=== PATIENT | female | born 1990 | race Caucasian/White ===

== ENCOUNTER 2019-03-26 20:58 | Inpatient (IN) | payer MEDICAID, SELFPAY ==
[2019-03-26 19:38] VITALS: BMI 35.6
[2019-03-26] MEDS: Lactated Ringers 1,000 ML 50 ML IV (21:57)
[2019-03-26 22:23] LABS: Absolute Lymphocyte Count 2.05 X10^3/uL (0.83-4.51); Absolute Neutrophil Count 9.3 X10^3/uL (2.0-7.7); Basophil# 0.01 X10^3/uL; Basophil% 0.1 % (0-1); Eosinophil# 0.05 X10^3/uL; Eosinophils% 0.4 % (0-5); Hematocrit 36.7 % (37-47); Hemoglobin 11.8 g/dL (12.0-15.0); Lymphocyte # 2.05 X10^3/ul (4.0); Mean Corp Hgb Conc 32.2 g/dL (32-36); Mean Platelet Vol. 10.8 fl (6.2-12.0); Monocyte# 0.51 X10^3/uL; Monocyte% 4.2 % (0-10); NRBC Flagged by Analyzer 0 % (0-5); Neutrophil # 9.33 X10^3/uL (2.7-7.7); Neutrophil % 77.6 % (47-70); Platelet Count 167 K/mm3 (150-450); RBC Distribution Width CV 14.6 % (11.6-14.6); RBC Distribution Width SD 44.6 fl (35.1-43.9); Red Blood Count 4.37 M/mm3 (4.2-5.4)
[2019-03-26 22:43] LABS: Amphetamine Urine VISTA NEGATIVE (<1000 ng/mL); Barbiturate Urine VISTA NEGATIVE (< 200 ng/mL); Benzodiazepine Urine VISTA NEGATIVE (< 200 ng/mL); Cocaine Urine VISTA NEGATIVE (< 300 ng/mL); Ecstacy Urine VISTA NEGATIVE (< 500 ng/mL); Methadone Urine VISTA NEGATIVE (< 300 ng/mL); PCP Urine VISTA NEGATIVE (< 25 ng/mL); THC Urine VISTA NEGATIVE (< 50 ng/mL); Vista UDS pH Range 6
[2019-03-27] MEDS: Lactated Ringers 500 ML 999 ML IV (01:28)
[2019-03-27] MEDS: fentaNYL-bupivacaine (epidural) 100 ML BAG EPIDURAL (02:55)
--- NOTE | 2019-03-27 04:55 | PCM.HP.OB ---
- Problem List (1) 40 weeks gestation of Status: Acute (2) ADHD Status: Acute (3) Borderline personality disorder Status: Acute (4) Manic depression Status: Acute (5) Seasonal affective disorder Status: Acute (6) Anemia Status: Acute (7) Asthma Status: Acute (8) Conversion disorder Status: Acute (9) Chlamydia infection Status: Acute (10) Abnormal Pap smear of cervix Status: Acute History Date of Admission: 03/26/19 Final EFE: 03/20/19 Gestational age: 41 Weeks and 0 Days History of this : This is a 28 year-old, G 4, P 1021, at 41 weeks gestational age who presented at 40w6d with contractions. She was 4 cm dilated on admission, and having regular ctx's on toco. Her cervix remained unchanged after 2 hours, but she had occasional variable decelerations. No LOF, VB. Good FM. Surgical History: Surgical History (Last Updated 03/27/19 @ 04:59 by Lady Buck DO) H/O colposcopy with cervical biopsy Z98.890 History of cryosurgery Z98.890 Hx of tonsillectomy Z90.89 Allergies No Known Allergies Allergy (Verified 03/26/19 22:28) Home Medications: Home Medications Colace 1 tab PO DAILY 03/26/19 Prenatabs FA 1 tab PO DAILY 03/26/19 Smoking Status: Light Smoker (<10/day) Alcohol: None Number of Fetus(es): 1 NST - FHR Rate Baby A Baseline: 140 Variability:: Moderate Accelerations:: 15 x 15 Decelerations:: Variable Uterine Activity:: Unable to read contractions, internal monitor placed History Past Pregnancies: Past Pregnancies Delivery Date Name GA/ Weeks Outcome Route Wt Sex Labor Length Anesthesia Delivery Location Provider FOB SAB Term SAB Labs: Growth at 35 wk gestation: 6lb 2oz, 57%, normal fluid Hgb 10.6 Random BG 71, Hgb a1c 4.8 UDS neg Hep B neg RPR NR GC/CT neg RI HIV NR Rh positive GBS pos Expected Infant Delivery Method: Spontaneous Vaginal Review of Systems Gynecological: Reports: - - +Contractions. No vb, lof. Good FM Physical Exam General: Alert, No apparent distress HEENT: Atraumatic Abdomen: Soft, Non Tender, Gravid Extremities:: No edema Neurological: Neuro grossly intact MEDICAL GENETICS DIRECTOR: Normal external genitalia Estimated gestational size: Appropriate for gestational size Presentation: Cephalic Cervix Dilation (cm): 7 Station: -2 Effacement (%): 90 Assessment/Plan All Active Problems 40 weeks gestation of (Acute) ADHD (Acute) Borderline personality disorder (Acute) Manic depression (Acute) Seasonal affective disorder (Acute) Anemia (Acute) Asthma (Acute) Conversion disorder (Acute) Chlamydia infection (Acute) Abnormal Pap smear of cervix (Acute) This is a 28 year-old, G 4, P 1, at 41 weeks gestational age today who presented with contractions at 40w6d with occasional variable decelerations. - PNC for GBS positive - Comfortable with epidural - UDS on admission negative - Was planning on AROM to place internal monitors, but no membranes palpated and pt's pad saturated with clear fluid. Internal monitors placed - Routine intrapartum care - Fetus palpates AGA and pelvic feels adequate. Anticipate vaginal delivery
[2019-03-27] MEDS: Oxytocin 30 units/NS 500 ml 30 UNITS/500 ML IV.SOLN 334 UNITS IV (06:44)
--- NOTE | 2019-03-27 06:56 | PCM.OPRPT ---
Problem List (1) 40 weeks gestation of Status: Acute (2) ADHD Status: Acute (3) Borderline personality disorder Status: Acute (4) Manic depression Status: Acute (5) Seasonal affective disorder Status: Acute (6) Anemia Status: Acute (7) Asthma Status: Acute (8) Conversion disorder Status: Acute (9) Chlamydia infection Status: Acute (10) Abnormal Pap smear of cervix Status: Acute Report of Operation Date of Procedure: 03/27/19 Pre-Operative Diagnosis: 40w6d gestation in labor, variable decelerations Post-Operative Diagnosis: As above, nuchal cord x 2 Surgery/Procedure Performed:: Vacuum assisted vaginal delivery Description of Surgical Findings:: Patient was complete and pushing. FHT with prolonged decelerations even with resuscitative measures, and having patient push on her side. Fetus at +2 station and in YANG position. Bladder drained with a laguna. Patient comfortable with an epidural. Risks of a vacuum assisted delivery were discussed including but not limited to cephalohematoma, subgaleal hematoma, and intracranial hemorrhage. Reviewed that the alternative to the vacuum assisted delivery is a section. Patient verbally consented to a vacuum assisted delivery, and she desired to proceed with the vacuum. The vacuum was placed, and suction was applied during 1 contraction. There was good maternal effort with pushing, and gentle traction was used with the vacuum. After 3 pushes during that 1 contraction, the suction was then released. This was repeated for a second contraction. The vacuum was then removed after using it with 2 contractions, and no pop offs. With the next contraction the patient delivered the head over an intact perineum. Nuchal cord x 2 was noted to be loose, and the nuchal cord was relieved. The anterior shoulder, followed by posterior shoulder, and body of the were delivered without any force or delay. VMI placed on maternal abdomen. Apgars were 8 and 9. Patient wished for the cord to not be clamped, and she desires to keep the placenta attached. Cord blood and cord gases were obtained. The placenta was then delivered intact with maternal pushing. Fundus was firm and bleeding hemostatic. No lacerations noted. There were bilateral abrasions near the clitoral stephens. EBL 250 cc. Type of Anesthesia:: Epidural Specimen's removed: Placenta Drains: Laguna Estimated Blood Loss (mL): 250 Description of Procedure: See above. Grafts/Implants Used: None - Complications None - Admit VTE Documentation VTE Present on Admission: No VTE Pharm Prophylaxis ordered?: No Vaginal Delivery Maternal Presentation: Active Labor Amniotic Membrane Rupture Type: Spontaneous Rupture of Membrane time: Unknown Amniotic Fluid Description: Clear Final EFE: 03/20/19 Gestational age: 41 Weeks and 0 Days Date of Procedure: 03/27/19 Surgery/ Procedure Performed: Vacuum Assisted Vaginal Delivery Type of Anesthesia: Epidural Presentation: Vertex Placental Delivery Description: Spontaneous Cord Vessel Description: 3 Vessels Nuchal Cord Compression: Without compression Cord Gases drawn per routine: ABG, VBG Cord Entanglement: Around neck x 2, loose Drain: Laguna to straight drain Infant A gender: Male (1 minute): 8 (5 minute): 9 Episiotomy Description: None Laceration: None Medications given after delivery: IV Pitocin Complications: None
[2019-03-27] MEDS: 0.9% Saline Lock 10 ML Syringe IV (10:00)
[2019-03-27 12:30] VITALS: BP 93/47; PULSE 70; RESP 16; TEMP 36.8
--- NOTE | 2019-03-27 15:11 | CASEMGMT ---
Social Work Referral Date: 03/27/19 Date of Assessment: 03/27/19 Reason for Consult: Mother of baby (MOB) with history of drug abuse. Informant: MOB, Nursing, Chart. Personal Status Mentation: A&Ox3 Present during assessment: MOB, Infant and two of MOB's female friends. Hx : 5 Hx Para: 1 Gender: Male Name: MOB stating I am not sure yet, either Ulices or Christopher. (1min): 8 (5min): 9 Care: Adequate. Alleged father: Tiburcio Alleged father involved: No, per MOB Tiburcio does not want to be involved with MOB or . Length of Relationship with alleged father of baby: MOB stating that MOB and Tiburcio had been together for 2 years and were considering having a child together next year, but when MOB found out MOB was Tiburcio stated to not be ready for this. Tiburcio then left MOB and MOB is no longer in a relationship with Tiburcio. FOB Mental Health/AOD/Domestic Violence Hx: MOB denies. FOB Employment: Unknown Number of Children in the home: This is second child for MOB. MOB has an 8 year old, Ross Arriaga. Ross does not share paternity with this . Per MOB Ross's father is not involved. Custody Comments: MOB has custody of Ross and now this infant. Living Arrangements: MOB, Ross and now this have private home together. Education: High School Diploma Employment: [employer]. Family Dynamics/Relationships: MOB stating to have no relationship with family. Supports: MOB stating that main supports are friends. MOB voicing no concern with support within the home/community. Transportation: No concerns. Substance Abuse Hx and Current Pattern of Use MOB stating to have a history of abusing Methamphetamines and Marijuana. MOB stating to also abuse Alcohol occasionally but not during . MOB denies any Meth or Marijuana usage during . MOB stating that last use of Meth or Marijuana was in 2017 when MOB relapsed. MOB stating to have had charges pressed against MOB and I spent Xiomara in fdc. MOB stating that [employer] [facility] was involved with Ross and removed Ross from the home until October 2018. MOB stating to be on probation and to have a marketing and communications officer. MOB stating I have been clean since April. MOB with no positive tox screens during or on admission to maternity unit. MOB denies Tobacco, Cocaine, Prescriptions Drugs or Heroin abuse. MOB stating I am and need to take care of my children. MOB stating to have never used substances or to drink Alcohol in front of or with children. MOB stating that when MOB wants to drink, MOB plans to have children go to a friends house, this is what I have done in the past with Ross. But again MOB stating I will not be drinking due to . Mental Health Hx and Current Status MOB stating to be diagnosed with Depression, Anxiety, Personality Disorder, Seasonal affective disorder, PTSD. Patient stating to be in active counseling through [facility] in [place]. MOB stating to have an counseling appointment set up for in a few weeks. MOB stating that my therapist is fantastic. MOB stating that counseling works for me. MOB denies any current medications. MOB stating they do not help. MOB denies any history of depression with Ross and is aware of signs and symptoms of depression. MOB denies any suicidal thoughts or attempts. Items/Skills List for Infants Care Supplies: MOB stating to have all needed supplies (crib, car seat, clothing, etc.) Bonding With : MOB stating I am glad that I did not have an or did an adoption. MOB stating to have a connection with . MOB stating that was not planned and that MOB did consider an or adoption but decided to keep and to want to make things works. MOB stating I care for my children. Observed Maternal/Paternal Child interaction: MOB holding infant during most of assessment. MOB gazing at often. Emotional Assessment: MOB presenting with a positive affect. MOB with forward thinking and positive goals. Resources JFS: Medical and Food stamps. WIC: Declines, stating this is a joke. Help Me Grow: Declines referral stating I have the needed support. Children Protective Services Hx: As noted above MOB with a previous Children services case through [facility] for Ross but per MOB case is now closed as of October 2018. Intervention: Resources on safe sleeping, tips and tricks to sooth a baby, depression, and [facility] resources provided. Active listening and support provided as well. All questions answered. Plan: to discharge to home with MOB and older brother Oliver. Anita Lopez RETAIL DEPARTMENT SUPERVISOR, SQUARING MACHINE OPERATOR
[2019-03-27 16:30] VITALS: BP 101/49; PULSE 91; RESP 16; TEMP 36.6
[2019-03-27] MEDS: Ibuprofen 600 MG Tablet PO (18:44)
[2019-03-27 20:07] VITALS: BP 99/62; PULSE 91; RESP 16; TEMP 36.4
--- NOTE | 2019-03-27 22:55 | NURSING ---
Unable to determine time of SROM, noted leaking fluid following epidural. Patient water intact upon arrival to hospital.
[2019-03-28] VITALS: BP 99/49; PULSE 71; RESP 16; TEMP 36.6
[2019-03-28] MEDS: Ibuprofen 600 MG Tablet PO ×2 (04:08→15:52)
[2019-03-28 04:29] VITALS: BP 98/61; PULSE 77; RESP 16; TEMP 36.4
[2019-03-28 08:33] VITALS: BP 90/46; PULSE 86; RESP 14; TEMP 36.4
--- NOTE | 2019-03-28 09:49 | PCM.PN.OB ---
Patient Problems: Active and Suspected Problems 40 weeks gestation of (Acute) ADHD (Acute) Borderline personality disorder (Acute) Manic depression (Acute) Seasonal affective disorder (Acute) Anemia (Acute) Asthma (Acute) Conversion disorder (Acute) Chlamydia infection (Acute) Abnormal Pap smear of cervix (Acute) Subjective: Patient is doing well this morning. She denies headaches, chest pain, shortness of breath, lightheadedness, abdominal pain, leg pain. She is ambulating and voiding without difficulty. She is tolerating a regular diet without nausea or vomiting. Lochia is normal. She is breast-feeding. Desires to stay another night. - Physical Exam Vitals/I&O's: Vital Signs Temp Pulse Resp BP 97.6 F L 86 14 90/46 L 03/28/19 08:33 03/28/19 08:33 03/28/19 08:33 03/28/19 08:33 Oxygen Delivery Method Room Air Weight: 214 lb 8.156 oz Body Mass Index (BMI) 35.6 Intake and Output for Last 24 Hours 03/26/19 03/27/19 03/28/19 23:59 23:59 23:59 Intake Total 105 / 105 2433.34 / 2433.34 Output Total 1800 / 1800 Balance 105 / 105 633.34 / 633.34 General: Alert, No apparent distress HEENT: Atraumatic Abdomen: Soft, Non Tender, Non-Distended, - - Fundus firm at U-1 Extremities: No edema, No Calf Tenderness Skin: No rashes Neurological: Neuro grossly intact Psych/Mental Status: Normal Affect, Appropriate Current Medications Acetaminophen (Tylenol) 1,000 mg PO Q8H PRN PRN PRN Reason: Pain Score 1-3/10 Bisacodyl (Dulcolax) 10 mg RECTAL UD PRN PRN Reason: If no BM Dibucaine (Dibucaine) 1 applic TOPICAL TID PRN PRN; Protocol PRN Reason: Discomfort Hydrocortisone (Hytone) 1 applic TOPICAL TID PRN PRN; Protocol PRN Reason: Discomfort Ibuprofen (Motrin) 600 mg PO Q6H PRN PRN PRN Reason: Pain Score 1-3/10 Last Admin: 03/28/19 04:08 Dose: 600 mg Documented by: Methylergonovine Maleate (Methergine) 0.2 mg IM X1 PRN PRN Reason: Excess bleeding/uterine atony Ondansetron HCl (Zofran) 4 mg IV Q4H PRN PRN PRN Reason: Nausea Senna/Docusate Sodium (Senokot-S, Gricelda-Colace) 1 - 2 tablet PO DAILY PRN PRN PRN Reason: Constipation Simethicone (Mylicon) 80 mg PO PCHS PRN PRN Reason: Indigestion/Stomach pain Sodium Chloride () 5 - 15 ml IV UD PRN PRN Reason: SALINE FLUSH Last Admin: 03/27/19 10:00 Dose: 10 ml Documented by: Medical Necessity - Tobacco Use Smoking Status: Light Smoker (<10/day) Assessment/Plan All Active Problems 40 weeks gestation of (Acute) ADHD (Acute) Borderline personality disorder (Acute) Manic depression (Acute) Seasonal affective disorder (Acute) Anemia (Acute) Asthma (Acute) Conversion disorder (Acute) Chlamydia infection (Acute) Abnormal Pap smear of cervix (Acute) PPD#1 s/p VAVD - Pt doing well this morning - Baby doing well - - Dispo: She desires to stay another night. Anticipate d/c tomorrow
[2019-03-28 16:00] VITALS: BP 119/68; PULSE 90; RESP 18
[2019-03-28 20:20] VITALS: BP 105/69; PULSE 80; RESP 18; TEMP 36.6
[2019-03-29 02:22] VITALS: BP 100/57; PULSE 89; RESP 18; TEMP 36.2
[2019-03-29] MEDS: Ibuprofen 600 MG Tablet PO ×2 (02:37→13:49)
[2019-03-29 08:00] VITALS: BP 105/65; PULSE 83; RESP 14; TEMP 36.4
--- NOTE | 2019-03-29 08:50 | PCM.PN.OB ---
Patient Problems: Active and Suspected Problems 40 weeks gestation of (Acute) ADHD (Acute) Borderline personality disorder (Acute) Manic depression (Acute) Seasonal affective disorder (Acute) Anemia (Acute) Asthma (Acute) Conversion disorder (Acute) Chlamydia infection (Acute) Abnormal Pap smear of cervix (Acute) Subjective: Doing well per patient and nursing staff. Ambulating and taking PO without difficulty. Voiding and passing flatus. Denies chest pain, shortness of breath, increased vaginal bleeding or clots.. Planning D/C home today. - Physical Exam Vitals/I&O's: Vital Signs Temp Pulse Resp BP 97.5 F L 83 14 105/65 03/29/19 08:00 03/29/19 08:00 03/29/19 08:00 03/29/19 08:00 Oxygen Delivery Method Room Air Weight: 214 lb 8.156 oz Body Mass Index (BMI) 35.6 Intake and Output for Last 24 Hours 03/27/19 03/28/19 03/29/19 23:59 23:59 23:59 Intake Total 2433.34 / 2433.34 250 / 250 Output Total 1800 / 1800 Balance 633.34 / 633.34 250 / 250 General: Alert, Oriented x3, Cooperative HEENT: Atraumatic, Normocephalic Neck: Trachea Midline Lungs: Clear to auscultation, Normal air movement, No rhonchi, No wheeze Cardiovascular: Regular rate, Regular Rhythm, No murmurs Abdomen: Bowel Sounds Present, - - Fundus firm 2 below U. Romeo's negative bilaterally Extremities: No edema Psych/Mental Status: Normal Affect, Appropriate Current Medications Acetaminophen (Tylenol) 1,000 mg PO Q8H PRN PRN PRN Reason: Pain Score 1-3/10 Bisacodyl (Dulcolax) 10 mg RECTAL UD PRN PRN Reason: If no BM Dibucaine (Dibucaine) 1 applic TOPICAL TID PRN PRN; Protocol PRN Reason: Discomfort Hydrocortisone (Hytone) 1 applic TOPICAL TID PRN PRN; Protocol PRN Reason: Discomfort Ibuprofen (Motrin) 600 mg PO Q6H PRN PRN PRN Reason: Pain Score 1-3/10 Last Admin: 03/29/19 02:37 Dose: 600 mg Documented by: Methylergonovine Maleate (Methergine) 0.2 mg IM X1 PRN PRN Reason: Excess bleeding/uterine atony Ondansetron HCl (Zofran) 4 mg IV Q4H PRN PRN PRN Reason: Nausea Senna/Docusate Sodium (Senokot-S, Gricelda-Colace) 1 - 2 tablet PO DAILY PRN PRN PRN Reason: Constipation Simethicone (Mylicon) 80 mg PO PCHS PRN PRN Reason: Indigestion/Stomach pain Sodium Chloride () 5 - 15 ml IV UD PRN PRN Reason: SALINE FLUSH Last Admin: 03/27/19 10:00 Dose: 10 ml Documented by: Medical Necessity - Tobacco Use Smoking Status: Light Smoker (<10/day) Assessment/Plan All Active Problems 40 weeks gestation of (Acute) ADHD (Acute) Borderline personality disorder (Acute) Manic depression (Acute) Seasonal affective disorder (Acute) Anemia (Acute) Asthma (Acute) Conversion disorder (Acute) Chlamydia infection (Acute) Abnormal Pap smear of cervix (Acute) A:PPD #2 VAVD P: 1) Routine discharge instructions 2) D/C home today 3) Follow up in 2 and 6 weeks
--- NOTE | 2019-03-29 08:53 | DCINST_ITS ---
Discharge Diet: No Restrictions Discharge Activity: Return to Normal Activity, May not drive while taking narcotic pain medications., May Shower, May Take a Tub Bath May resume sexual activity in: 4-6 weeks Weight Bearing Status: Full weight bearing Additional Activity Instructions:: Nothing in the vagina for 4-6 weeks. You may return to work/school in 6 weeks. Call your doctor if your incision/area has: Continuous Slow Oozing, Sudden Increased Bleeding, Increased Pain/ Swelling, Increased Redness, Foul Smelling Discharge Call your doctor if you observe: Fever of 101 or Higher, Inability to urinate, Inability to have a bowel movement, Using more than one pad per hour, Shortness of breath, Increased palpitations (irregular heartbeat), Calf discomfort, Uncontrolled pain Additional Instructions: If you experience any of the following, contact your healthcare provider. * Bleeding that soaks a pad every hour for 2 hours * Fever 100.4 or higher * Unrelieved incision or abdominal pain * Swelling, redness, discharge or bleeding from your incision or episiotomy site * Your incision begins to separate * Problems urinating (including inability to urinate or burning while urinating). * Visual changes * Severe headache * Flu-like symptoms * Pain or redness in one of both of your breasts * Pain, warmth, tenderness or swelling in your legs, especially the calf area * Frequent nausea and vomiting * Symptoms of depression or anxiety If you experience any of the following, call 911 or go to the nearest Emergency Room. * Chest pain * Problems breathing * Seizure activity * Partial or complete paralysis of a body part, slurred speech, weakness or drooping of the face, or a sudden inability to walk or hold your balance Allergies/Adverse Reactions: Allergies No Known Allergies Allergy (Verified 03/26/19 22:28) Medications to take at Discharge Prenatabs FA 1 tab PO DAILY 03/26/19 Ibuprofen [Motrin] 600 mg PO Q6H PRN PRN #30 tab 03/29/19 The following prescriptions were given: Ibuprofen [Motrin] 600 mg PO Q6H PRN PRN #30 tab PRN Reason: Pain Score 1-3/10 Transmission Status: Pending to [id number] Please Follow Up With: Lady Buck DO When: Call to make an appointment with your doctor in 2 weeks and 6 weeks. Primary Care Physician: Care Physician,No Primary [Primary Care Provider] - Test Results: Test results from this visit will be discussed in further detail at your follow- up appointment, if applicable.
[2019-03-29 13:50] VITALS: BP 103/70; PULSE 96; RESP 15; TEMP 36.7
== END 2019-03-29 14:30 | disposition home or self-care (01) | DRG 560 ==
LOC: WPOUT 20:59 → WP 20:59
PROVIDERS: Admitting Provider Obstetrics & Gynecology; Referring Provider Obstetrics & Gynecology; Visit Provider Obstetrics & Gynecology
DX: O76 Abnormality in fetal heart rate and rhythm complicating labor and delivery (principal); O69.81X0 Labor and delivery complicated by cord around neck, without compression, not applicable or unspecified; O99.824 Streptococcus B carrier state complicating childbirth; O99.354 Diseases of the nervous system complicating childbirth; G40.909 Epilepsy, unspecified, not intractable, without status epilepticus; O99.334 Smoking (tobacco) complicating childbirth; F17.200 Nicotine dependence, unspecified, uncomplicated; Z3A.40 40 weeks gestation of pregnancy; Z37.0 Single live birth
CPT/HCPCS: 59025; 59050; 80307; 85025; 86850; 86900; 86901; 94799; 99218; J7120; A4216; G0378

== ENCOUNTER → 2020-04-18 11:11 | Outpatient (CLI) | payer MEDICAID, SELFPAY ==
[2020-04-18 12:22] LABS: Absolute Neutrophil Count 4.7 X10^3/uL (2.0-7.7); Basophil# 0.01 X10^3/uL; Basophil% 0.1 % (0-1); Eosinophil# 0.16 X10^3/uL; Mean Corp Hgb Conc 31.8 g/dL (32-36); Mean Corpuscular Hgb 27.3 pg (27.0-32.0); Mean Corpuscular Volume 85.8 fL (81-99); Mean Platelet Vol. 10.6 fl (6.2-12.0); Monocyte# 0.38 X10^3/uL; Monocyte% 4.8 % (0-10); NRBC Flagged by Analyzer 0 % (0-5); Neutrophil # 4.72 X10^3/uL (2.7-7.7); Platelet Count 246 K/mm3 (150-450); RBC Distribution Width CV 12.9 % (11.6-14.6); RBC Distribution Width SD 40.1 fl (35.1-43.9); Red Blood Count 5.13 M/mm3 (4.2-5.4); White Blood Count 7.9 K/mm3 (4.4-11.0)
[2020-04-18 13:10] LABS: ALB/GLOB Ratio 1.3 RATIO (0.9-2.4); AST(SGOT) 20 U/L (15-37); Alanine Aminotransfer ALT/SGPT 35 U/L (13-56); Albumin, Serum 4.6 g/dL (3.2-5.0); Alkaline Phosphatase 102 U/L (45-117); Anion Gap 4 (5-15); BUN 18 mg/dL (7-18); BUN/Creat Ratio 23.1 RATIO (10-20); Calcium,Total 9.5 mg/dL (8.5-10.1); Chloride 112 mmol/L (98-107); Creatinine, Serum 0.78 mg/dL (0.55-1.02); EST Glomerular Filtration Rate 93 mL/min (>60); Est Glom Filt Rate - Afr Amer 113 mL/min (>60); Globulin 3.6 g/dL (2.2-4.2); Glucose 78 mg/dL (74-106); Potassium 3.5 mmol/L (3.5-5.1); Protein, Total 8.2 g/dL (6.4-8.2); Sodium Level 141 mmol/L (136-145); Thyroid Stim Hormone (TSH) 0.99 uIU/mL (0.358-3.74)
[2020-04-18 13:28] LABS: Vitamin B12 987 pg/mL (211-911); Vitamin D,25 Hydroxy 35.8 ng/mL
== END ==
PROVIDERS: Visit Provider Family Medicine
DX: R53.83 Other fatigue (principal)
CPT/HCPCS: 36415; 80053; 82306; 82607; 84443; 85025

== ENCOUNTER → 2020-05-02 11:40 | Outpatient (CLI) | payer MEDICAID, SELFPAY ==
[2020-05-02 16:00] LABS: Free T3 2.5 pg/mL (2.18-3.98); T4 Total, Thyroxin 6.4 ug/dL (4.8-13.9)
== END ==
PROVIDERS: PCP Family Medicine; Referring Provider Family Medicine; Visit Provider Family Medicine
DX: R53.83 Other fatigue (principal)
CPT/HCPCS: 36415; 84436; 84481

== ENCOUNTER → 2020-05-09 12:57 | Outpatient (CLI) | payer MEDICAID, SELFPAY ==
[2020-05-09 15:41] LABS: Follicle Stimulating Hormone 7.8 mIU/mL; Luteinizing Hormone 12.4 mIU/mL
== END ==
PROVIDERS: PCP Family Medicine; Referring Provider Family Medicine; Visit Provider Family Medicine
DX: R23.2 Flushing (principal)
CPT/HCPCS: 36415; 83001; 83002

== ENCOUNTER → 2020-05-22 12:02 | Outpatient (CLI) | payer MEDICAID, SELFPAY ==
[2020-05-18 09:38] VITALS: BMI 32.3
[2020-05-22 12:52] LABS: Hematocrit 44.3 % (37-47); Hemoglobin 14.3 g/dL (12.0-15.0); Mean Corp Hgb Conc 32.3 g/dL (32-36); Mean Corpuscular Hgb 27.7 pg (27.0-32.0); Mean Corpuscular Volume 85.9 fL (81-99); Mean Platelet Vol. 10.9 fl (6.2-12.0); Platelet Count 240 K/mm3 (150-450); RBC Distribution Width CV 12.8 % (11.6-14.6); RBC Distribution Width SD 39.9 fl (35.1-43.9); Red Blood Count 5.16 M/mm3 (4.2-5.4); White Blood Count 7.6 K/mm3 (4.4-11.0)
[2020-05-22 12:58] LABS: Anion Gap 6 (5-15); BUN 17 mg/dL (7-18); BUN/Creat Ratio 20.4 RATIO (10-20); Calcium,Total 9.5 mg/dL (8.5-10.1); Chloride 109 mmol/L (98-107); Creatinine, Serum 0.83 mg/dL (0.55-1.02); EST Glomerular Filtration Rate 86 mL/min (>60); Est Glom Filt Rate - Afr Amer 104 mL/min (>60); Glucose 82 mg/dL (74-106); Sodium Level 141 mmol/L (136-145)
== END ==
PROVIDERS: PCP Family Medicine; Visit Provider Psychiatry & Neurology Neurology
DX: F44.5 Conversion disorder with seizures or convulsions (principal)
CPT/HCPCS: 36415; 80048; 84443; 85027

== ENCOUNTER → 2020-06-02 06:30 | Outpatient (CLI) | payer MEDICAID, SELFPAY ==
[2020-05-18 09:38] VITALS: BMI 32.3
--- NOTE | 2020-06-02 06:42 | MRI_ITS ---
STUDY: MRI BRAIN WITH AND WITHOUT CONTRAST REASON FOR EXAM: Female, 29 years old. Brain fog, mood shifts, seizures x 3 years, h/o conversion disor TECHNIQUE: Standardized multiplanar fat and water weighted pulse sequences were obtained. Pt received 17ml Dotarem via IV was administered for the contrast portion of the examination. COMPARISON: None. FINDINGS: No diffusion restriction throughout the brain parenchyma. No focal signal abnormalities throughout the brain parenchyma in all pulse sequences. Thin T1 and T2 coronal sections of the temporal lobes were performed. The limbic lobes are normal and symmetrical. Normal size of the ventricles and extra-axial spaces for the patient''s age. Normal white matter tracts of the supratentorial brain. Normal bilateral basal ganglia. Normal thalami. There is no extra-axial fluid accumulation. Normal flow voids within the major intracranial circulation suggesting patency by spin echo criteria. Normal venous enhancement. There is no enhancing intra-axial or extra-axial abnormality. Normal sella turcica, pituitary gland, infundibular stalk, optic chiasm and hypothalamus. Normal tectal plate and pineal gland. Normal midbrain, herlinda and medulla. Normal cerebellum. Normal basal cisterns. Normal bilateral temporal bones. Normal bilateral internal auditory canals. No demonstrated orbital abnormality, within the constraints of a routine brain study. Normal visualized paranasal sinuses. Normal calvarium and skull base. Normal visualized soft tissue structures. Normal visualized upper cervical spine. MRI/Brain W/WO Contrast IMPRESSION: Normal unenhanced and enhanced MRI of the brain including the limbic lobes. Electronically Signed: Marcos Purdy MD at 11:37 EST , Service support ,
== END ==
PROVIDERS: PCP Family Medicine; Referring Provider Psychiatry & Neurology Neurology; Visit Provider Psychiatry & Neurology Neurology
DX: G40.909 Epilepsy, unspecified, not intractable, without status epilepticus (principal)
CPT/HCPCS: 70553; A9575

== ENCOUNTER → 2025-05-04 | Outpatient (CLI) | payer MEDICAID, SELFPAY ==
--- NOTE | 2024-10-11 09:48 | PAT.ANESEVAL ---
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 When Was Last Pacemaker Check QUESTION #4 FULL TEXT: You/Your Family Experience fever (hyperthermia) with Anesthesia Last Oral Intake Last Oral intake: Last Oral Intake NPO since Meds taken in AM with sips of water? 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 Has anyone observed you stop No 10/08/24 17:16 breathing during sleep? STOP Results Negative 10/08/24 17:16 QUESTION #5 FULL TEXT : Do you snore loudly (louder than talking or can be heard through closed doors)? 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 Specify any problems Hx of Preganancy in last 3 No 10/08/24 17:16 Months Nurse Filling Out Transfusion MGRIFFITH 10/08/24 17:16 & Questions: Date: 10/08/24 10/08/24 17:16 Time: 17:19 10/08/24 17:16 Patient unable to answer at this time (ie. 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: /Reproductive Hx- furniture assembly supervisor Hx Now No 10/08/24 17:16 Gestational Age (in weeks): EDC: Hx Hx Para Hx Section SAB No 10/08/24 17:16 PFSH Medical History (Updated 10/08/24 @ 17:28 by Marcia Ragsdale) Wears glasses Cancer Borderline personality disorder ADHD Marijuana use Easy bruising Migraine headache Asthma Smoker Depression Seizure disorder Home Medications ?Medication ?Instructions ?Recorded ?Last Taken ?Type cholecalciferol (vitamin D3) 50 6,000 unit PO DAILY 05/17/20 Unknown History mcg (2,000 unit) capsule aripiprazole 5 mg tablet (Abilify) 5 mg PO QDAY 08/06/24 Unknown History bisacodyl 5 mg tablet,delayed 20 mg (4 x 5 mg) PO ONCE 08/06/24 Unknown Rx release (Dulcolax (bisacodyl)) Colonoscopy #4 tabs buspirone 7.5 mg tablet 7.5 mg PO TID PRN MOOD 08/06/24 Unknown History fluoxetine 10 mg capsule (Prozac) 10 mg PO QDAY 08/06/24 Unknown History lisdexamfetamine 70 mg capsule 70 mg PO QDAY 08/06/24 Unknown History (Vyvanse) oxcarbazepine 300 mg tablet 300 mg PO QDAY 08/06/24 Unknown History (Trileptal) polyethylene glycol 3350 17 See Rx Instructions .Route 08/06/24 Unknown Rx gram/dose oral powder .COMPLEX Colonoscopy #238 grams dupilumab 300 mg/2 mL subcutaneous 300 mg subcut .BIWEEKLY 10/08/24 Unknown History pen injector (Dupixent) erenumab-aooe 140 mg/mL 140 mg subcut QMONTH MIGRAINES 10/08/24 Unknown History subcutaneous auto-injector (Aimovig Autoinjector) Allergy/AdvReac Type Severity Reaction Status Date / Time No Known Allergies Allergy Verified 10/08/24 17:07 Family History Mother Hypertension Diabetes Chronic mental illness Surgical History (Updated 10/08/24 @ 17:16 by Marcia Ragsdale) History of myringotomy History of cryosurgery H/O colposcopy with cervical biopsy Hx of tonsillectomy Social History (Updated 08/06/24 @ 10:17 by Florencia Sung) Smoking Status: Current every day smoker tobacco type: e-cigarettes Electronic Cigarette Use: with nicotine alcohol intake: current alcohol intake frequency: a few times a month details: 6-9 white claws 2x a month substance use type: marijuana what type of physical activity do you participate in: yoga Audit: Pertinent Findings Pertinent Findings Additional pertinent findings: hx of frequent seizures.. consider versed pre op Recommendation Anesthesia Recommendation Anesthesia recommendation: OPTIMIZED for anesthesia
[2024-10-14 11:57] VITALS: BP 120/84; PULSE 100; RESP 16; TEMP 36.2; O2SAT 98; BMI 34.8
[2024-10-14 12:04] LABS: Internal QC Validated? YES +Cl - CLEAR BKGD; Pregnancy, Urine Negative Negative; Record Kit Lot#,Urine Preg 0000929381
[2024-10-14] MEDS: Lactated Ringers 1,000 ML 15 ML IV (12:14)
--- NOTE | 2024-10-14 12:23 | PCM.HP.STD ---
HPI - General General Date of Admission: 10/14/24 Date of Service: 10/14/24 Chief Complaint: diarrhea HPI Narrative RICHARD QURESHI, is a 34 F who presents*[facility] established 3.. pt reports for the past year she has been having increased diarrhea; nocturnal diarrhea and occasional fecal incontinence. Pt reports that due to the frequency of bowel movements is having rectal pain / irritation and was told previously that she may have a fissure. Pt reports that she has been eating a poor diet and wonders if the diarrhea could be a cause of that. Pt reports increased gas and bloating as well. [facility] Medical History Wears glasses Cancer Borderline personality disorder ADHD Marijuana use Easy bruising Migraine headache Asthma Smoker Depression Seizure disorder Home Medications ?Medication ?Instructions ?Recorded ?Last Taken ?Type cholecalciferol (vitamin D3) 50 6,000 unit PO DAILY 05/17/20 Unknown History mcg (2,000 unit) capsule aripiprazole 5 mg tablet (Abilify) 5 mg PO QDAY 08/06/24 Unknown History bisacodyl 5 mg tablet,delayed 20 mg (4 x 5 mg) PO ONCE 08/06/24 Unknown Rx release (Dulcolax (bisacodyl)) Colonoscopy #4 tabs buspirone 7.5 mg tablet 7.5 mg PO TID PRN MOOD 08/06/24 Unknown History fluoxetine 10 mg capsule (Prozac) 10 mg PO QDAY 08/06/24 Unknown History lisdexamfetamine 70 mg capsule 70 mg PO QDAY 08/06/24 Unknown History (Vyvanse) oxcarbazepine 300 mg tablet 300 mg PO QDAY 08/06/24 10/14/24 History (Trileptal) polyethylene glycol 3350 17 See Rx Instructions .Route 08/06/24 Unknown Rx gram/dose oral powder .COMPLEX Colonoscopy #238 grams dupilumab 300 mg/2 mL subcutaneous 300 mg subcut .BIWEEKLY 10/08/24 Unknown History pen injector (DupixeduPad) erenumab-aooe 140 mg/mL 140 mg subcut QMONTH MIGRAINES 10/08/24 Unknown History subcutaneous auto-injector (Aimovig Autoinjector) Allergy/AdvReac Type Severity Reaction Status Date / Time No Known Allergies Allergy Verified 10/14/24 11:54 Family History Mother Hypertension Diabetes Chronic mental illness Surgical History History of myringotomy History of cryosurgery H/O colposcopy with cervical biopsy Hx of tonsillectomy Social History Smoking Status: Current every day smoker tobacco type: e-cigarettes Electronic Cigarette Use: with nicotine alcohol intake: current alcohol intake frequency: a few times a month details: 6-9 white claws 2x a month substance use type: marijuana what type of physical activity do you participate in: yoga ROS Constitutional Constitutional: Denies fatigue, fever(s), poor appetite, weight gain or weight loss Gastrointestinal Gastrointestinal: Denies belching, bloating, change in bowel habits, change in stool character, chewing difficulty, coffee ground emesis, constipation, cramping, diarrhea, dyspepsia, dysphagia, early satiety, excessive flatus, fecal incontinence, heartburn, hematemesis, hematochezia, hemorrhoids, loose stools, melena, nausea, odynophagia, rectal bleeding, tenesmus, vomiting or weight changes Vital Signs Vital Signs Vital Signs: 10/14/24 11:57 10/14/24 11:57 Temperature 97.1 F L Temperature Source Temporal Pulse Rate 100 Respiratory Rate 16 Respiratory Pattern Normal Blood Pressure 120/84 H Blood Pressure Mean 96 Blood Pressure Source Monitor Blood Pressure Position Semi-Fowlers Blood Pressure Location Right Arm Pulse Ox 98 Oxygen Delivery Method Room Air Weight Weight: 209 lb 7.026 oz Body Mass Index (BMI) 34.8 Physical Exam Const alert, oriented x3, no apparent distress and healthy appearing General Appearance: cooperative GI normal to inspection, nondistended, normoactive bowel sounds, soft to palpation, non-tender and non-distended Percussion: normal to percussion Rectal Exam: deferred Results Lab / Micro Data Labs: Laboratory Results - last 24 hr 10/14/24 11:50: Urine Test Negative Assessment & Plan Assessment/Plan (1) Diarrhea: PLAN: Assessment and Plan Assessment and Plan (1) Diarrhea: Status: Acute Plan: 33-year-old right-handed woman with a past medical history of depression, anxiety, seasonal affective disorder, borderline personality disorder, attention deficit hyperactivity disorder, positive HPV, precancerous cervical cells status post colposcopy and illicit drug use who presents for evaluation of diarrhea. She states that during when she was a teenager she had no diarrhea. She has not seen blood in her stool. She denies any rashes, ulcers or lesions. She has no family inflammatory bowel disease but her mother is adopted and she does not know her father. She does things bulging and protrusion of her rectum through her anus. This bothers her because she cannot model that requires her to be in the nude. She has 2 children that are both boys. Their ages are 5-15. He does have a history of alcohol abuse and drug abuse in the past which she does coordinate some of her worsening symptoms. . She had seen a psychiatrist and psychologist in the past and in the past was treated with Depakote, Ritalin, Vyvanse, Adderall, Zoloft, Prozac and during childhood was treated with Wellbutrin. She has a history of binge alcohol drinking. She has been intoxicated with alcohol about 2 dozen times in 2020. The differential diagnosis for her does include celiac disease, inflammatory bowel disease, IBS with diarrhea. She did have 2 vaginal births which she said did lead to some possible hemorrhoidal disease. She does not have any history of pelvic floor dysfunction. She will need to undergo colonoscopy and also get biochemical workup for inflammatory bowel disease. She was explained alternatives, risk and benefits include not withstanding bleeding, infection, sepsis, perforation, need for urgent . She will have an ASA of 3. Orders: Orders IBD Expanded Profile Today R19.7 - Diarrhea, unspecified CRP Today R19.7 - Diarrhea, unspecified Erythrocyte Sed Rate Today R19.7 - Diarrhea, unspecified LDH Today R19.7 - Diarrhea, unspecified ANCA Today R19.7 - Diarrhea, unspecified MERLINE Comprehensive Panel Today R19.7 - Diarrhea, unspecified Comprehensive Metabolic Profil Today R19.7 - Diarrhea, unspecified CBC W/Diff, Automated Today R19.7 - Diarrhea, unspecified Quantiferon TB-Gold+ Today R19.7 - Diarrhea, unspecified HIV Today R19.7 - Diarrhea, unspecified Hepatitis Panel Acute Today R19.7 - Diarrhea, unspecified Thyroid Stim Hormone (TSH) Today R19.7 - Diarrhea, unspecified Celiac Disease Profile Today R19.7 - Diarrhea, unspecified Immunoglobulins G/A/M/E Today R19.7 - Diarrhea, unspecified HSV 1&2 IgG Today R19.7 - Diarrhea, unspecified IgG Subclasses Today R19.7 - Diarrhea, unspecified Syphilis Antibodies Today R19.7 - Diarrhea, unspecified Rheumatoid Factor Today R19.7 - Diarrhea, unspecified CCP IgG Antibodies Today R19.7 - Diarrhea, unspecified
--- NOTE | 2024-10-14 12:38 | NURSING ---
Pt does not have a ride home, will have to cancel, pt took her own iv out, prior to this nurse knowing. Pt is aware she needs to call and follow up with Dr. Davis office to reschedule.
== END | disposition home or self-care (01) ==
LOC: PAT 13:25
PROVIDERS: Anesthesiology; Visit Provider Internal Medicine Gastroenterology
DX: Z01.818 Encounter for other preprocedural examination (principal)
CPT/HCPCS: 81025